=== PATIENT | male | born 1945 | race Caucasian/White ===

== ENCOUNTER 2016-06-16 15:40 | Inpatient (IN) | payer MEDICARE ==
[2016-06-16] MEDS ORDERED: INSULIN REGULAR HUMAN 100 UNIT/1 ML 10 ML MDV IVP STA ×2 (15:58→16:50)
[2016-06-16] MEDS ORDERED: SODIUM CHLORIDE 0.9% 1,000 ML IV ONE ×3 (15:58→17:05)
[2016-06-16] MEDS ORDERED: ONDANSETRON 4 MG/2 ML VIAL IVP STA ×2 (16:00→17:38)
[2016-06-16] MEDS ORDERED: INSULIN REGULAR HUMAN 100 UNIT in SODIUM CHLORIDE 0.9% 100ML 99 ML IV STA (16:49)
[2016-06-16] MEDS ORDERED: SODIUM BICARBONATE ABBOJECT 50 MEQ/50 ML SYRINGE IVP STA (16:50)
[2016-06-16] MEDS ORDERED: ONDANSETRON 4 MG/2 ML VIAL ONE ×2 (17:02→18:14)
[2016-06-16] MEDS ORDERED: SODIUM BICARBONATE ABBOJECT 50 MEQ/50 ML SYRINGE ONE (17:02)
[2016-06-16] MEDS ORDERED: INSULIN REGULAR HUMAN 100 UNIT/1 ML 10 ML MDV ONE (17:03)
[2016-06-16] MEDS ORDERED: ALBUTEROL NEB 2.5 MG/3 ML INH STA (17:18)
[2016-06-16] MEDS ORDERED: ALBUTEROL NEB 2.5 MG/3 ML INH ONE (17:26)
[2016-06-16] MEDS ORDERED: INSULIN REGULAR HUMAN 100 UNIT in SODIUM CHLORIDE 0.9% 100ML 99 ML IV SCH (20:42)
[2016-06-16] MEDS ORDERED: SODIUM CHLORIDE FLUSH 0.9% 10 ML SYRINGE IVP PRN (20:42)
[2016-06-16] MEDS ORDERED: ONDANSETRON ODT 4 MG TABLET TL PRN (20:42)
[2016-06-16] MEDS ORDERED: PROCHLORPERAZINE 10 MG/2 ML VIAL IVP PRN (20:42)
[2016-06-16] MEDS ORDERED: HYDROcod/ACETAM 5/325 MG TABLET PO PRN (20:42)
[2016-06-16] MEDS ORDERED: ALBUTEROL NEB 2.5 MG/3 ML INH PRN (20:42)
[2016-06-16] MEDS ORDERED: ACETAMINOPHEN 325 MG TABLET PO PRN (20:42)
[2016-06-16] MEDS: SODIUM CHLORIDE FLUSH 0.9% 10 ML SYRINGE IVP SCH (23:23)
[2016-06-16] MEDS: SODIUM CHLORIDE 0.9% 1,000 ML IV SCH (23:49)
[2016-06-17] MEDS ORDERED: DEXTROSE GEL 37.5 GM TUBE PO PRN ×2 (02:20→16:27)
[2016-06-17] MEDS ORDERED: GLUCAGON 1 MG/ML VIAL SUBQ PRN ×2 (02:20→16:27)
[2016-06-17] MEDS ORDERED: DEXTROSE 50% ABBOJECT 25 GM/50 ML SYRINGE IVP PRN ×2 (02:20→16:27)
[2016-06-17] MEDS ORDERED: DEXTROSE 5% 1,000 ML IV PRN ×2 (02:20→16:27)
[2016-06-17] MEDS: SODIUM CHLORIDE FLUSH 0.9% 10 ML SYRINGE IVP SCH ×2 (05:42→14:03)
[2016-06-17] MEDS ORDERED: PANTOPRAZOLE 40 MG VIAL IVP SCH (07:00)
[2016-06-17] MEDS ORDERED: INSULIN GLARGINE 300 UNIT/3 ML PEN SUBQ SCH (08:00)
[2016-06-17] MEDS ORDERED: INSULIN ASPART 300 UNIT/3 ML PEN SUBQ SCH ×5 (08:00→17:00)
[2016-06-17] MEDS ORDERED: ENOXAPARIN 40 MG/0.4 ML SYRINGE SUBQ SCH (09:00)
[2016-06-17] MEDS: SODIUM CHLORIDE 0.9% 1,000 ML IV SCH (09:13)
[2016-06-17] MEDS: MAGNESIUM OXIDE 400 MG TABLET PO SCH ×2 (09:15→14:01)
[2016-06-17] MEDS: CALCIUM CITRATE 250 MG TABLET PO SCH ×4 (09:15→22:46)
[2016-06-17] MEDS ORDERED: SODIUM CHLORIDE FLUSH 0.9% 10 ML SYRINGE IVP PRN (16:27)
[2016-06-17] MEDS ORDERED: HYDROcod/ACETAM 5/325 MG TABLET PO PRN (16:27)
[2016-06-17] MEDS ORDERED: PROCHLORPERAZINE 10 MG/2 ML VIAL IVP PRN (16:27)
[2016-06-17] MEDS ORDERED: ALBUTEROL NEB 2.5 MG/3 ML INH PRN (16:27)
[2016-06-17] MEDS ORDERED: ONDANSETRON ODT 4 MG TABLET TL PRN (16:27)
[2016-06-17] MEDS ORDERED: ACETAMINOPHEN 325 MG TABLET PO PRN (16:27)
[2016-06-17] MEDS: INSULIN ASPART 300 UNIT/3 ML PEN SUBQ SCH (17:23)
[2016-06-17] MEDS: CEPHALEXIN 250 MG CAPSULE PO SCH (17:24)
[2016-06-17] MEDS ORDERED: CEPHALEXIN 250 MG CAPSULE PO SCH (18:00)
[2016-06-18] MEDS: CEPHALEXIN 250 MG CAPSULE PO SCH ×4 (00:04→17:49)
[2016-06-18] MEDS: CALCIUM CITRATE 250 MG TABLET PO SCH ×3 (00:08→09:11)
[2016-06-18] MEDS: SODIUM CHLORIDE FLUSH 0.9% 10 ML SYRINGE IVP SCH ×4 (00:09→21:53)
[2016-06-18] MEDS: INSULIN ASPART 300 UNIT/3 ML PEN SUBQ SCH ×5 (01:03→21:53)
[2016-06-18] MEDS: PANTOPRAZOLE 40 MG VIAL IVP SCH (07:01)
[2016-06-18] MEDS ORDERED: INSULIN GLARGINE 300 UNIT/3 ML PEN SUBQ SCH ×2 (08:00→08:49)
[2016-06-18] MEDS: ENOXAPARIN 40 MG/0.4 ML SYRINGE SUBQ SCH (09:10)
[2016-06-18] MEDS ORDERED: CALCIUM CITRATE 250 MG TABLET PO ONE (09:30)
[2016-06-19] MEDS: CEPHALEXIN 250 MG CAPSULE PO SCH ×3 (00:40→11:50)
[2016-06-19] MEDS: PANTOPRAZOLE 40 MG VIAL IVP SCH (06:17)
[2016-06-19] MEDS: SODIUM CHLORIDE FLUSH 0.9% 10 ML SYRINGE IVP SCH (06:17)
[2016-06-19] MEDS ORDERED: INSULIN GLARGINE 300 UNIT/3 ML PEN SUBQ SCH (08:00)
[2016-06-19] MEDS: INSULIN ASPART 300 UNIT/3 ML PEN SUBQ SCH ×2 (08:17→11:45)
[2016-06-19] MEDS: ENOXAPARIN 40 MG/0.4 ML SYRINGE SUBQ SCH (08:18)
== END 2016-06-19 15:10 | disposition home or self-care (01) | DRG 638 ==
DX: E13.10 Other specified diabetes mellitus with ketoacidosis without coma (principal); E87.5 Hyperkalemia; E86.0 Dehydration; N28.9 Disorder of kidney and ureter, unspecified; I13.0 Hypertensive heart and chronic kidney disease with heart failure and stage 1 through stage 4 chronic kidney disease, or unspecified chronic kidney disease; I50.22 Chronic systolic (congestive) heart failure; N17.9 Acute kidney failure, unspecified; J06.9 Acute upper respiratory infection, unspecified; L03.031 Cellulitis of right toe; E11.649 Type 2 diabetes mellitus with hypoglycemia without coma; I25.10 Atherosclerotic heart disease of native coronary artery without angina pectoris; N18.3 Chronic kidney disease, stage 3 (moderate); E78.5 Hyperlipidemia, unspecified; G20 Parkinson's disease; F32.9 Major depressive disorder, single episode, unspecified; Z79.4 Long term (current) use of insulin; T38.3X6A Underdosing of insulin and oral hypoglycemic [antidiabetic] drugs, initial encounter; I25.2 Old myocardial infarction; Z66 Do not resuscitate; Z79.82 Long term (current) use of aspirin; Z79.899 Other long term (current) drug therapy

== ENCOUNTER 2016-09-17 10:26 | Outpatient (CLI) | payer MEDICARE | END 2016-09-17 10:27 | disposition critical access hospital (66) | DX: R73.9 Hyperglycemia, unspecified (principal) | CPT/HCPCS: A0425; A0427 ==

== ENCOUNTER 2016-09-17 10:52 | Inpatient (IN) | payer MEDICARE ==
[2016-09-17] MEDS ORDERED: INSULIN REGULAR HUMAN 100 UNIT/1 ML 10 ML MDV IVP STA (11:46)
[2016-09-17] MEDS ORDERED: SODIUM CHLORIDE 0.9% 1,000 ML IV ONE ×2 (11:46→11:48)
[2016-09-17] MEDS ORDERED: ONDANSETRON 4 MG/2 ML VIAL IVP STA (11:49)
[2016-09-17] MEDS ORDERED: ONDANSETRON 4 MG/2 ML VIAL ONE (12:03)
[2016-09-17] MEDS ORDERED: INSULIN REGULAR HUMAN 100 UNIT/1 ML 10 ML MDV ONE (12:05)
[2016-09-17] MEDS ORDERED: INSULIN REGULAR HUMAN 100 UNIT in SODIUM CHLORIDE 0.9% 100ML 99 ML IV STA (12:38)
[2016-09-17] MEDS ORDERED: ACETAMINOPHEN 325 MG TABLET PO PRN (13:38)
[2016-09-17] MEDS ORDERED: ONDANSETRON 4 MG/2 ML VIAL IVP PRN (13:38)
[2016-09-17] MEDS ORDERED: HYDROcod/ACETAM 5/325 MG TABLET PO PRN (13:38)
[2016-09-17] MEDS ORDERED: SODIUM CHLORIDE FLUSH 0.9% 10 ML SYRINGE IVP PRN (13:38)
[2016-09-17] MEDS ORDERED: FAMOTIDINE 20 MG/50 ML 50 ML IV SCH (14:00)
[2016-09-17] MEDS ORDERED: SODIUM CHLORIDE 0.9% 1,000 ML IV SCH (14:00)
[2016-09-17] MEDS ORDERED: INSULIN REGULAR HUMAN 100 UNIT in SODIUM CHLORIDE 0.9% 100ML 99 ML IV SCH ×2 (14:00→15:00)
[2016-09-17] MEDS: SODIUM CHLORIDE FLUSH 0.9% 10 ML SYRINGE IVP SCH ×2 (15:32→21:06)
[2016-09-17] MEDS: HEPARIN 5,000 UNIT/ML VIAL SUBQ SCH ×2 (15:42→21:06)
[2016-09-17] MEDS: FAMOTIDINE 20 MG/50 ML 50 ML IV SCH (16:37)
[2016-09-17] MEDS ORDERED: GLUCAGON 1 MG/ML VIAL SUBQ PRN (20:24)
[2016-09-17] MEDS ORDERED: DEXTROSE 5% 1,000 ML IV PRN (20:24)
[2016-09-17] MEDS ORDERED: DEXTROSE 50% ABBOJECT 25 GM/50 ML SYRINGE IVP PRN (20:24)
[2016-09-17] MEDS ORDERED: DEXTROSE GEL 37.5 GM TUBE PO PRN (20:24)
[2016-09-17] MEDS: INSULIN ASPART 300 UNIT/3 ML PEN SUBQ SCH (20:57)
[2016-09-17] MEDS: CARBIDOPA/LEVODOPA ER 25 MG/100 MG TABLET PO SCH (21:05)
[2016-09-17] MEDS: INSULIN GLARGINE 300 UNIT/3 ML PEN SUBQ SCH (21:05)
[2016-09-17] MEDS: SODIUM CHLORIDE 0.9% 1,000 ML IV SCH (21:06)
[2016-09-18] MEDS: ALPRAZolam 0.25 MG TABLET PO PRN (02:00)
[2016-09-18] MEDS: SODIUM CHLORIDE FLUSH 0.9% 10 ML SYRINGE IVP SCH ×3 (05:57→20:45)
[2016-09-18] MEDS: CARBIDOPA/LEVODOPA ER 25 MG/100 MG TABLET PO SCH ×3 (05:57→20:41)
[2016-09-18] MEDS: SODIUM CHLORIDE 0.9% 1,000 ML IV SCH ×2 (07:17→19:53)
[2016-09-18] MEDS: CLOPIDOGREL 75 MG TABLET PO SCH (08:08)
[2016-09-18] MEDS: LISINOPRIL 5 MG TABLET PO SCH (08:08)
[2016-09-18] MEDS: ATORVASTATIN 40 MG TABLET PO SCH (08:08)
[2016-09-18] MEDS: FAMOTIDINE 20 MG/50 ML 50 ML IV SCH (08:08)
[2016-09-18] MEDS: FUROSEMIDE 20 MG TABLET PO SCH (08:08)
[2016-09-18] MEDS: HEPARIN 5,000 UNIT/ML VIAL SUBQ SCH ×2 (08:08→20:38)
[2016-09-18] MEDS: CARVEDILOL 3.125 MG TABLET PO SCH (08:09)
[2016-09-18] MEDS: INSULIN ASPART 300 UNIT/3 ML PEN SUBQ SCH ×4 (08:15→21:08)
[2016-09-18] MEDS ORDERED: CARVEDILOL 3.125 MG TABLET PO SCH (09:00)
[2016-09-18] MEDS: POLYETHYLENE GLYCOL 3350 17 GM PACKET PO SCH (15:53)
[2016-09-18] MEDS: INSULIN GLARGINE 300 UNIT/3 ML PEN SUBQ SCH (21:07)
[2016-09-19] MEDS: ALPRAZolam 0.25 MG TABLET PO PRN (00:04)
[2016-09-19] MEDS: SODIUM CHLORIDE FLUSH 0.9% 10 ML SYRINGE IVP SCH ×2 (05:28→08:23)
[2016-09-19] MEDS: CARBIDOPA/LEVODOPA ER 25 MG/100 MG TABLET PO SCH (06:10)
[2016-09-19] MEDS: FAMOTIDINE 20 MG/50 ML 50 ML IV SCH (08:22)
[2016-09-19] MEDS: FUROSEMIDE 20 MG TABLET PO SCH (08:22)
[2016-09-19] MEDS: POLYETHYLENE GLYCOL 3350 17 GM PACKET PO SCH (08:22)
[2016-09-19] MEDS: ATORVASTATIN 40 MG TABLET PO SCH (08:22)
[2016-09-19] MEDS: INSULIN ASPART 300 UNIT/3 ML PEN SUBQ SCH (08:22)
[2016-09-19] MEDS: CLOPIDOGREL 75 MG TABLET PO SCH (08:22)
[2016-09-19] MEDS: HEPARIN 5,000 UNIT/ML VIAL SUBQ SCH (08:23)
[2016-09-19] MEDS: LISINOPRIL 5 MG TABLET PO SCH (08:26)
[2016-09-19] MEDS: CARVEDILOL 3.125 MG TABLET PO SCH (08:26)
== END 2016-09-19 11:10 | disposition home or self-care (01) | DRG 638 ==
DX: E13.10 Other specified diabetes mellitus with ketoacidosis without coma (principal); R11.2 Nausea with vomiting, unspecified; N17.9 Acute kidney failure, unspecified; F41.9 Anxiety disorder, unspecified; I13.0 Hypertensive heart and chronic kidney disease with heart failure and stage 1 through stage 4 chronic kidney disease, or unspecified chronic kidney disease; H54.7 Unspecified visual loss; I50.22 Chronic systolic (congestive) heart failure; E86.0 Dehydration; G20 Parkinson's disease; R94.31 Abnormal electrocardiogram [ECG] [EKG]; R41.89 Other symptoms and signs involving cognitive functions and awareness; E13.22 Other specified diabetes mellitus with diabetic chronic kidney disease; N18.3 Chronic kidney disease, stage 3 (moderate); I25.10 Atherosclerotic heart disease of native coronary artery without angina pectoris; E78.5 Hyperlipidemia, unspecified; F32.9 Major depressive disorder, single episode, unspecified; R26.2 Difficulty in walking, not elsewhere classified; T38.3X6A Underdosing of insulin and oral hypoglycemic [antidiabetic] drugs, initial encounter; Y92.009 Unspecified place in unspecified non-institutional (private) residence as the place of occurrence of the external cause; Z95.1 Presence of aortocoronary bypass graft; R91.8 Other nonspecific abnormal finding of lung field; I25.2 Old myocardial infarction; Z79.4 Long term (current) use of insulin; Z79.899 Other long term (current) drug therapy